=== PATIENT | female | born 1985 | race Caucasian/White ===

== ENCOUNTER 2024-09-28 10:29 | Outpatient (OUT) | payer OTHER, SELFPAY ==
[2024-09-28 10:58] LABS: Basophils Percent Auto 0.5 % (0.2-2.0); Eosinophils Absolute Auto 0.1 10^3/uL (0.0-0.7); Hemoglobin 14.9 g/dL (12.0-16.0); Immature Granulocytes Abs Auto 0.01 10^3/uL (0.00-0.03); Immature Granulocytes Pct Auto 0.1 % (0.0-0.5); Lymphocytes Absolute Auto 3.4 10^3/uL (1.2-3.8); Lymphocytes Percent Auto 43.2 % (20.5-60.0); Mean Corpuscular HGB Conc 33.1 g/dL (29.9-35.2); Mean Corpuscular Hemoglobin 28.5 pg (26.7-34.0); Mean Platelet Volume 9.7 fL (9.5-13.5); Monocytes Absolute Auto 0.5 10^3/uL (0.3-0.8); Neutrophils Absolute Auto 3.9 10^3/uL (1.4-6.5); Neutrophils Percent Auto 49.2 % (43.0-75.0); Platelet Count 236 10^3/uL (150-450); Red Blood Count 5.23 10^6/uL (4.20-5.40); Red Cell Distribution Width 12.3 % (11.0-15.0); White Blood Count 7.8 10^3/uL (4.0-11.0)
[2024-09-28 11:04] LABS: Estimated Average Glucose 114 mg/dL; Glycohemoglobin A1C 5.6 % (4.5-6.2)
[2024-09-28 11:31] LABS: Alanine Aminotransferase 41 U/L (14-59); Albumin Globulin Ratio 0.8; Albumin Level 3.4 g/dL (3.4-5.0); Alkaline Phosphatase 78 U/L (46-116); Anion Gap 11.9; Aspartate Amino Transferase 32 U/L (15-37); BUN Creatinine Ratio 20.7; Bilirubin Total 0.4 mg/dL (0.2-1.0); Carbon Dioxide 28.5 mmol/L (21.0-32.0); Chloride 103 mmol/L (98-107); Chol HDL Ratio 4.6; Cholesterol 183 mg/dL (<=200); Estimated GFR (African America >60 (>=60 mL/min/1.73m^2); Estimated GFR (Non-African Ame >60 (>=60 mL/min/1.73m^2); Free T3 2.96 pg/mL (2.18-3.98); Globulin 4.2 g/dL; Glucose 84 mg/dL (74-106); HDL Cholesterol 40 mg/dL (40-60); LDL Cholesterol Calculated 116.8 mg/dL; Potassium 4.4 mmol/L (3.5-5.1); Sodium 139 mmol/L (136-145); Thyroid Stimulating Hormone 0.474 uIU/mL (0.358-3.740); Total Protein 7.6 g/dL (6.4-8.2); Triglycerides 131 mg/dL (<=150); VLDL CHOLESTEROL 26.2 mg/dL
== END 2024-09-28 10:30 | disposition home or self-care (01) ==
LOC: LAB 10:33
PROVIDERS: PCP Family Medicine; Visit Provider Family Medicine
DX: Z00.00 Encounter for general adult medical examination without abnormal findings (principal)
CPT/HCPCS: 36415; 80053; 80061; 83036; 83540; 84436; 84443; 84481; 85025

== ENCOUNTER 2025-08-09 17:47 | Emergency (ER) | payer SELFPAY ==
--- OUTSIDE RECORDS SUMMARY | 2024-09-01 10:45 | XMS_ITS ---
Author Organization [facility] in [place] Address [address] [place] [address] Care Team Providers Care Community Nutrition Educator Name Role Phone Fly Morel Primary Care Provider [phone] REASON FOR VISIT Annual Encounters Encounter Location Date Provider Diagnosis [facility] [address] [place] [address] 09/01/2024 Fly Morel Plan Of Treatment No Information Progress Notes * Elizabeth SLOAN NDOB:1985 (39 yo F)Acc No.[id number]:09/01/2024 UNLOCKED PROGRESS NOTE Progress Note Patient: Elizabeth JONAS Provider: Kang Morel MD (TTC) :1985 A ge:38 Y S ex:Female Date:09/01/2024 [id number] Subjective: * Chief Complaints: * 1 . Annual. * Medical History: Objective: * Vitals: Assessment: Plan: * Treatment: * * Electronic signature of Fly Morel MD, [id number] on 08/09/2025 at 05:54 PM EDT Sign off status: Pending Visit Status: C ANC (Cancelled) * Provider: Kang Morel MD (TTC) Date: 11/01/2023 Generated for Printi ng/Faxing/eTransmitting on: 05:54 PM EDT
--- OUTSIDE RECORDS SUMMARY | 2024-09-29 07:00 | XMS_ITS ---
Author Organization The [facility] in [place] Address [address] [place] [place] [address] Care Team Providers Care Ict Support Engineer Name Role Phone Fly Morel Primary Care Provider [phone] Mojgan Duran [phone] REASON FOR VISIT yearly Encounters Encounter Location Date Provider Diagnosis [facility] [address] [place] [address] 09/29/2024 Mojgan Zhou Plan Of Treatment No Information Progress Notes * Elizabeth SLOAN NDOB:1985 (39 yo F)Acc No.[id number]:09/29/2024 UNLOCKED PROGRESS NOTE Progress Note Patient: Elizabeth JONAS Provider: Roque Zhou CNP (TTC) :1985 A ge:38 Y S ex:Female Date:09/29/2024 Address:[facility] [address], [facility] Pcp:Fly Morel Subjective: * Chief Complaints: * 1 . Yearly. * Medical History: Objective: * Vitals: Assessment: Plan: * Treatment: * * Electronic signature of Yasmin Kolb NP, PHYSICIAN [email or web address].[email or web address] [email or web address] on 08/09/2025 at 05:54 PM EDT Sign off status: Pending Visit Status: C ANC (Cancelled) * Provider: Roque Zhou CNP (TTC) Date: 1 11/30/2023 Generated for Printi ng/Faxing/eTransmitting on: 1 05:54 PM EDT
--- OUTSIDE RECORDS SUMMARY | 2024-10-06 04:45 | XMS_ITS ---
Author Organization [facility] in [place] Address [address] [place] [address] Care Team Providers Care Lactation Nurse Name Role Phone Fly Morel Primary Care Provider Alexander Summers [phone] Results Component Value Reference Range Notes XR Foot RT (3 views) * Reviewed date:10/25/2024 01:16:20 PM Interpretation: Performing Lab: Notes/Report: REASON FOR VISIT callus and hammertoes, referral from Maria Teresa Encounters Encounter Location Date Provider Diagnosis [facility] (P[facility]) [address] [place] [address] [place] [address] 10/06/2024 Alexander Summers Left foot pain M79.672 and Right foot pain M79.671 Assessments Encounter Date Diagnosis (ICD Code) Assessment Notes Treatment Notes Treatment Clinical Notes Section Notes 10/06/2024 Left foot pain (ICD-10 - M79.672) 10/06/2024 Right foot pain (ICD-10 - M79.671) Plan Of Treatment Pending Test Test Name Order Date XR Foot LT (3 views) * 10/06/2024 Progress Notes * Elizabeth SLOAN NDOB:1985 (39 yo F)Acc No.[id number]:10/06/2024 UNLOCKED PROGRESS NOTE New Patient Patient: Elizabeth JONAS Jose Provider: Roque Summers DPM, MS :1985 A ge:38 Y S ex:Female Date:10/06/2024 Address:[address] [place] [address] [address], [place], [id number] Pcp:Fly Morel Subjective: * Chief Complaints: * 1 . callus and hammertoes, referral from Maria Teresa. * Medical History: Objective: * Vitals: Assessment: * Assessment: 1. L eft foot pain - M79.672 2 . R ight foot pain - M79.671 ? Plan: * Treatment: 2. R ight foot pain I maging: XR Foot RT (3 views) * (Performed Date - 10/06/2024) * * Electronic signature of Timothy Summers DPM on 08/09/2025 at 05:54 PM EDT Sign off status: Pending Visit Status: C ANC (Cancelled) * Provider: Roque Summers DPM, MS Date: 12/07/2023 Generated for Donovan albarado/Laura/eTransmitting on: 1 05:54 PM EDT
[2025-08-09 17:50] VITALS: BP 147/77; PULSE 118; TEMP 37.1; O2SAT 100; BMI 25.0
--- OUTSIDE RECORDS SUMMARY | 2025-08-09 17:55 | XMS_ITS | CCD ---
Author Organization [facility] Care Team Providers Care Trimmer Meat Name Role Phone MARIA TERESA ., DR REILLY Admitting Unavailable MARIA TERESA ., DR REILLY Attending Unavailable BOBYY ., DR REILLY Consulting Unavailable BOBYY ., DR REILLY Primary Care Unavailable HOY ., DR REILLY Attending Unavailable BOBYY ., DR REILLY Primary Care Unavailable MARIA TERESA ., DR REILLY Admitting Unavailable MD Melba Brown Primary Care Provider [phone] TYESHA Ha Emergency Provider MD Melba Brown Primary Care Provider [phone] MD Melba Brown Attending Provider [phone] VASQUEZ ALFARO Attending Unavailable LAZARO Brown Emergency Provider MD Melba Brown Primary Care Provider [phone] MD Juan Ramon Butler Attending Provider Yadiel Ha Admitting Unavailable Yadiel Ha Attending Unavailable Melba Brown Primary Care Unavailable Juan Ramon Butler Admitting Unavailable Juan Ramon Butler Attending Unavailable Melba Brown Primary Care Unavailable Melba Brown Admitting Unavailable Melba Brown Attending Unavailable Melba Brown Primary Care Unavailable Edgar Brown Admitting Unavailable Edgar Brown Attending Unavailable Mebla Brown Primary Care Unavailable Allergies Allergy Classification Reported Allergen(s) Allergy Type Date of Onset Reaction(s) Facility (1 source) Shellfish Drug allergy (disorder) 6 [facility] (5 sources) traMADol Drug Allergy 2 Seizure [facility] (5 sources) Amoxicillin; Translations: [amoxicillin] Drug Allergy 2 [facility] (5 sources) Shrimp product; Translations: [shrimp] Propensity to adverse reactions 2 Hives [facility] (1 source) traMADol Drug Allergy 4 [facility] Repository Medications Current Medications Medication Drug Class(es) Dates Sig (Normalized) Sig (Original) amitriptyline hydrochloride 100 mg oral tablet (8 sources) Tricyclic Antidepressant Start: 03-28-2021 take 100 mg by mouth once daily Amitriptyline Active 100 MG PO Daily March 28, 2021 12:00am Start: 12-03-2017 End: 04-26-2019 take 100 mg by mouth once daily Amitriptyline Discontinued 100 MG PO Daily December 03, 2017 1:00am April 26, 2019 12:56pm clindamycin 150 mg oral capsule (6 sources) Lincosamide Antibacterial Start: 04-29-2024 take 300 mg by mouth every six hours Clindamycin Hcl Active 300 MG PO Q6H 80 April 29, 2024 12:00am Start: 11-26-2021 End: 04-29-2024 take 150 mg by mouth four times daily Clindamycin Hcl Discontinued 150 MG PO Four times daily November 26, 2021 1:00am April 29, 2024 6:42pm ibuprofen 800 mg oral tablet (16 sources) Nonsteroidal Anti-inflammatory Drug Start: 11-26-2021 take 800 mg by mouth three times daily Ibuprofen Active 800 MG PO Three times daily November 26, 2021 1:00am Start: 05-30-2019 End: 11-26-2021 Ibuprofen Discontinued 600 M G PO Every 6 hours May 30, 2019 12:00am November 26, 2021 10:52am do not exceed 4 doses in a 24 hour period Start: 03-06-2018 End: 04-26-2019 take 800 mg by mouth three times daily Ibuprofen Discontinued 800 MG PO Three times daily June 25, 2018 12:36pm April 26, 2019 12:56pm methadone hydrochloride 10 mg oral tablet (4 sources) Opioid Agonist Start: 03-28-2021 take 120 mg by mouth once daily Methadone Active 120 MG PO Daily March 28, 2021 12:00am naproxen 500 mg oral tablet (2 sources) Nonsteroidal Anti-inflammatory Drug Start: 04-29-2024 take 1 tablet by mouth twice daily Naproxen (Naprosyn) 500 mg tablet Active 500 MG PO Twice daily April 29, 2024 12:00am Completed/Discontinued Medications Medication Drug Class(es) Dates Sig (Normalized) Sig (Original) acetaminophen 325 mg / HYDROcodone bitartrate 5 mg oral tablet (8 sources) Opioid Agonist Start: 06-25-2018 End: 06-27-2018 take 1 tablet by mouth every six hours Hydrocodone-Acetami nophen (Marquez) 5-325 mg tablet Discontinued 1 TAB PO Q6H 6 2 June 25, 2018 June 27, 2018 12:02am Start: 06-19-2018 End: 06-21-2018 take 1 tablet by mouth every six hours Hydrocodone-Acetaminophen (Marquez) 5-325 mg tablet Discontinued 1 TAB PO Q6H 10 2 June 19, 2018 June 21, 2018 12:02am azithromycin 250 mg oral tablet (4 sources) Macrolide Antimicrobial Start: 03-28-2021 End: 11-26-2021 Azithromycin Discontinued 0 PO .COMPLEX 6 March 28, 2021 12:00am November 26, 2021 10:52am take 500 mg today (day 1), then 250 mg for 4 days (days 2-5) buprenorphine 8 mg / naloxone 2 mg sublingual film (4 sources) Partial Opioid Agonist, Opioid Antagonist Start: 03-28-2021 End: 03-28-2021 Buprenorphine-Nalox one Discontinued FILM March 28, 2021 12:00am March 28, 2021 10:02am cephalexin 500 mg oral capsule (4 sources) Cephalosporin Antibacterial Start: 05-30-2019 End: 03-28-2021 take 1 capsule by mouth three times daily Cephalexin (Keflex) 500 mg Capsule Discontinued 500 MG PO Three times daily May 30, 2019 12:00am March 28, 2021 10:00am dexamethasone 0.1 mg/ml oral solution (4 sources) Corticosteroid Start: 10-14-2023 End: 04-29-2024 take 1 mg by mouth four times daily Dexamethasone Discontinued 1 MG PO Four times daily October 14, 2023 1:00am April 29, 2024 6:42pm Swish and spit diphenhydrAMINE hydrochloride 25 mg oral capsule (4 sources) Histamine-1 Receptor Antagonist Start: 05-30-2019 End: 03-28-2021 take 2 capsules by mouth once daily at bedtime Diphenhydramine Hcl (Benadryl) 25 mg Capsule Discontinued 50 MG PO Daily at bedtime May 30, 2019 12:00am March 28, 2021 10:00am esomeprazole 20 mg delayed release oral capsule (4 sources) Proton Pump Inhibitor Start: 06-02-2019 End: 03-28-2021 take 1 capsule by mouth once daily Esomeprazole Magnesium (Nexium) 20 mg Capsule,Delayed Release(Dr/Ec) Discontinued 20 MG PO Daily June 02, 2019 12:00am March 28, 2021 10:00am ketorolac tromethamine 5 mg/ml ophthalmic solution (4 sources) Nonsteroidal Anti-inflammatory Drug, Cyclooxygenase Inhibitor Start: 04-26-2019 End: 05-30-2019 take 1 drop(s) into the eye(s) every six hours Ketorolac Discontinued 1 DROPS OPHTHALMIC Q6H 5 April 26, 2019 12:00am May 30, 2019 5:50pm predniSONE 20 mg oral tablet (4 sources) Start: 03-28-2021 End: 11-26-2021 take 60 mg by mouth once daily at mealtime Prednisone Discontinued 60 MG PO Daily March 28, 2021 12:00am November 26, 2021 10:52am administer with food or milk Problems Active Problems Problem Classification Problem Date Documented Date Episodic/Chronic Abdominal pain (4 sources) Abdominal pain; Translations: [Unspecified abdominal pain] 06-02-2019 Episodic Chronic obstructive pulmonary disease and bronchiectasis (4 sources) Bronchitis; Translations: [Bronchitis, not specified as acute or chronic] 03-28-2021 Episodic Deficiency and other anemia (1 source) Anemia, unspecified; Translations: [ANEMIA UNSPECIFIED] Onset: 03-06-2023 Episodic Diabetes mellitus without complication (1 source) Other abnormal glucose; Translations: [OTHER ABNORMAL GLUCOSE] Onset: 03-06-2023 Episodic Disorders of teeth and jaw (7 sources) Toothache; Translations: [Other specified disorders of teeth and supporting structures] Onset: 04-29-2024 11-26-2021 Episodic Hepatitis (4 sources) Unspecified viral hepatitis C without hepatic coma; Translations: [UNS VIRAL HEPATITIS C W/O HEP COMA] Onset: 03-01-2023 Episodic Nausea and vomiting (4 sources) Nausea and vomiting; Translations: [Nausea with vomiting, unspecified] 01-01-2018 Episodic Nutritional deficiencies (1 source) Vitamin D deficiency, unspecified; Translations: [VITAMIN D DEFICIENCY UNSPECIFIED] Onset: 03-06-2023 Chronic Other connective tissue disease (4 sources) Heel pain; Translations: [Pain in left foot] 04-26-2019 Episodic Other eye disorders (4 sources) Chalazion of right upper eyelid; Translations: [Chalazion right upper eyelid] 04-26-2019 Episodic Other nutritional; endocrine; and metabolic disorders (1 source) Abnormal weight loss; Translations: [ABNORMAL WEIGHT LOSS] Onset: 03-06-2023 Episodic Other nutritional; endocrine; and metabolic disorders (4 sources) Weight loss; Translations: [Abnormal weight loss] 01-01-2018 Episodic Other screening for suspected conditions (not mental disorders or infectious disease) (1 source) Abnormal electrocardiogram [ECG] [EKG]; Translations: [Abnormal electrocardiogram [ECG] [EKG]] Onset: 05-25-2024 Episodic Substance-related disorders (1 source) Opioid abuse, uncomplicated; Translations: [OPIOID ABUSE UNCOMPLICATED] Onset: 03-06-2023 Chronic Thyroid disorders (1 source) Hypothyroidism, unspecified; Translations: [Hypothyroidism, unspecified] Onset: 02-06-2024 Chronic Urinary tract infections (4 sources) Acute urinary tract infection; Translations: [Urinary tract infection, site not specified] 05-30-2019 Episodic Past or Other Problems Problem Classification Problem Date Documented Da te Episodic/Chronic Diseases of mouth; excluding dental (5 sources) Aphthous ulceration of skin and/or mucous membrane; Translations: [Recurrent oral aphthae] Onset: 10-14-2023 10-14-2023 Episodic Results Test Name Value Interpretation Reference Range Facility ECG 12 lead ECGon 05-25-2024 ECG 12 lead ECG [facility] [place] [address] Electrocardiograph Report Signed Patient: Elizabeth Sloan MR#: [id number] : 1985 Acct:[id number] Age/Sex: 38 / F ADM Date: 05/25/24 Loc: Room: Type: [facility] Attending Dr: Juan Ramon Butler MD Ordering Provider: Juan Ramon Butler MD Date of Service: 05/25/24/ ECG/ECG 12 lead ECG: see order Copies to: Test Reason : Blood Pressure : */* mmHG Vent. Rate : 81 BPM Atrial Rate : 81 BPM P-R Int : 144 ms QRS Dur : 78 ms QT Int : 388 ms P-R-T Axes : 54 64 50 degrees QTcB Int : 450 ms Normal sinus rhythm Normal ECG When compared with ECG of 26-Nov-2021 09:32, No significant change was found Confirmed by EH JOSE [facility], MARINA ([id number]) on 05/25/2024 2:48:11 PM Referred By: Electronically Signed By: MARINA GONZALEZ MD [facility] Transcribed By: MUS Signed By Marina Gonzalez MD, [facility] 05/25/24 1448 Normal [facility] A1C with Estimated Average G daviddavon 02-06-2024 Glucose [Mass/Vol] 117 mg/dL Normal [facility] Comment on above: Order Comment: FASTI NG Result Comment: PERF ORMED BY: [place] [address] PATHOLOGIST [employer]ZER PRESS OPERATOR TINY MERCER M.D. Performed By: #### T 3F, CMP, TSH3, FSH, LIPID, A1C WTH eA, CBC, [id number], FE #### [facility] [address] [place] [address] #### INSULIN #### [facility] , Alanine aminotransferase [En zymatic activity/volume] in Serum or PlasmaOrdered By: Melba Brown on 02-06-2024 ALT [Catalytic activity/Vol] 39 U/L Normal [facility] Comment on above: Order Comment: FASTI NG Performed By: #### T 3F, CMP, TSH3, FSH, LIPID, A1C WTH eA, CBC, [id number], FE #### [facility] [address] [place] [address] [place] #### INSULIN #### [facility] , Albumin [Mass/volume] in Ser um or Plasma by Bromocresol green (BCG) dye binding methoOrdered By: Melba Brown on 02-06-2024 Albumin BCG dye [Mass/Vol] 4.3 g/dL 3.5-5.7 [facility] Alkaline phosphatase [Enzyma tic activity/volume] in Serum or PlasmaOrdered By: Melba Brown on 02-06-2024 ALP [Catalytic activity/Vol] 80 U/L Normal 34-104 [facility] Comment on above: Order Comment: FASTI NG Performed By: #### T 3F, CMP, TSH3, FSH, LIPID, A1C WTH eA, CBC, [id number], FE #### [facility] [address] [place] [address] [place] #### INSULIN #### [facility] , Aspartate aminotransferase [ Enzymatic activity/volume] in Serum or PlasmaOrdered By: Melba Brown on 02-06-2024 AST [Catalytic activity/Vol] 39 U/L Normal 13-39 [facility] Comment on above: Order Comment: FASTI NG Performed By: #### T 3F, CMP, TSH3, FSH, LIPID, A1C WTH eA, CBC, [id number], FE #### [facility] [address] [place] [address] [place] #### INSULIN #### [facility] , Automated basophil %Ordered By: Melba Brown on 02-06-2024 Basophils/100 WBC (Bld) 0.5 % Normal . [facility] Comment on above: Order Comment: FASTI NG Performed By: #### T 3F, CMP, TSH3, FSH, LIPID, A1C WTH eA, CBC, [id number], FE #### [facility] [address] [place] [address] [place] #### INSULIN #### [facility] , Automated basophil countOrde red By: Melba Brown on 02-06-2024 Basophils (Bld) [#/Vol] 0.0 10*3/uL Normal 0.0-0.2 [facility] Comment on above: Order Comment: FASTI NG Result Comment: PERF ORMED BY: [place] [address] PATHOLOGIST B[employer]DOZER PRESS OPERATOR TINY MERCER M.D. Performed By: #### T 3F, CMP, TSH3, FSH, LIPID, A1C WTH eA, CBC, [id number], FE #### [facility] [address] [place] [address] [place] #### INSULIN #### [facility] , Automated blood monocyte cou ntOrdered By: Melba Brown on 02-06-2024 Monocytes (Bld) [#/Vol] 0.6 10*3/uL Normal 0.0-0.8 [facility] Comment on above: Order Comment: FASTI NG Performed By: #### T 3F, CMP, TSH3, FSH, LIPID, A1C WTH eA, CBC, [id number], FE #### [facility] [address] [place] [address] [place] #### INSULIN #### [facility] , Automated eosinophil %Ordere d By: Melba Brown on 02-06-2024 Eosinophils/100 WBC (Bld) 0.9 % Normal . [facility] Comment on above: Order Comment: FASTI NG Performed By: #### T 3F, CMP, TSH3, FSH, LIPID, A1C WTH eA, CBC, [id number], FE #### [facility] [address] [place] [address] [place] #### INSULIN #### [facility] , Automated eosinophil countOr dered By: Melba Brown on 02-06-2024 Eosinophils (Bld) [#/Vol] 0.1 10*3/uL Normal 0.0-0.45 [facility] Comment on above: Order Comment: FASTI NG Performed By: #### T 3F, CMP, TSH3, FSH, LIPID, A1C WTH eA, CBC, [id number], FE #### [facility] [address] [place] [address] [place] #### INSULIN #### [facility] , Automated monocyte %Ordered By: Melba Brown on 02-06-2024 Monocytes/100 WBC (Bld) 7.7 % Normal . [facility] Comment on above: Order Comment: FASTI NG Performed By: #### T 3F, CMP, TSH3, FSH, LIPID, A1C WTH eA, CBC, [id number], FE #### [facility] [address] [place] [address] [place] #### INSULIN #### [facility] , Automated neutrophil %Ordere d By: Melba Maria Teresa on 02-06-2024 Neutrophils/100 WBC (Bld) 51.1 % Normal . [facility] Comment on above: Order Comment: FASTI NG Performed By: #### T 3F, CMP, TSH3, FSH, LIPID, A1C WTH eA, CBC, [id number], FE #### [facility] [address] [place] [address] [place] #### INSULIN #### [facility] , Bilirubin.total [Mass/volume ] in Serum or PlasmaOrdered By: Melba Brown on 02-06-2024 Bilirubin [Mass/Vol] 0.4 mg/dL Normal 0.3-1.0 [facility] Comment on above: Order Comment: FASTI NG Performed By: #### T 3F, CMP, TSH3, FSH, LIPID, A1C WTH eA, CBC, [id number], FE #### [facility] [address] [place] [address] [place] #### INSULIN #### [facility] , Calcium [Mass/volume] in Ser um or PlasmaOrdered By: Melba Brown on 02-06-2024 Calcium [Mass/Vol] 9.6 mg/dL Normal 8.6-10.3 [facility] Comment on above: Order Comment: FASTI NG Performed By: #### T 3F, CMP, TSH3, FSH, LIPID, A1C WTH eA, CBC, [id number], FE #### [facility] [address] [place] [address] [place] #### INSULIN #### [facility] , Carbon dioxide, total [Moles /volume] in Serum or PlasmaOrdered By: Melba Brown on 02-06-2024 CO2 [Moles/Vol] 28.8 mmol/L Normal 21.0-31.0 [facility] Comment on above: Order Comment: FASTI NG Performed By: #### T 3F, CMP, TSH3, FSH, LIPID, A1C WTH eA, CBC, [id number], FE #### [facility] [address] [place] [address] [place] #### INSULIN #### [facility] , Chloride [Moles/volume] in S d[place] or PlasmaOrdered By: Melba Brown on 02-06-2024 Chloride [Moles/Vol] 101 mmol/L Normal 98-107 [facility] Comment on above: Order Comment: FASTI NG Performed By: #### T 3F, CMP, TSH3, FSH, LIPID, A1C WTH eA, CBC, [id number], FE #### [facility] [address] [place] [address] #### INSULIN #### [facility] , Cholesterol [Mass/volume] in Serum or PlasmaOrdered By: Melba Brown on 02-06-2024 Cholesterol [Mass/Vol] 187 mg/dL Normal 140-200 [facility] Comment on above: Chol less than 200 m g/dl low riskChol 201-239 mg/dl borderline riskChol 240 mg/dl and greater high risk Order Comment: FASTI NG Result Comment: Chol less than 200 mg/dl low risk Chol 201-239 mg/dl borderline risk Chol 240 mg/dl and greater high risk Performed By: #### T 3F, CMP, TSH3, FSH, LIPID, A1C WTH eA, CBC, [id number], FE #### [facility] [address] [place] [address] [place] #### INSULIN #### [facility] , Cholesterol in LDL Calc [Mas s/Vol]Ordered By: Melba Brown on 02-06-2024 Cholesterol in LDL [Mass/Vol] 129 mg/dL High 0-100 [facility] Comment on above: LDL ATP III CLASSIFI CATIONLDL less than 100 mg/dL OptimalLDL 100-129 mg/dL Near or above optimalLDL 130-159 mg/dL Borderline highLDL 160-189 mg/dL HighLDL greater than 189 mg/dL Very high Cholesterol in VLDL Calc [Ma ss/Vol]Ordered By: Melba Brown on 02-06-2024 Cholesterol in VLDL [Mass/Vol] 28 mg/dL [facility] Complete Blood Count Auto Di ffon 02-06-2024 Mean Corpuscular HGB Conc 34.2 g/dL Normal 32.0-35.0 [facility] Comment on above: Order Comment: FASTI NG Performed By: #### T 3F, CMP, TSH3, FSH, LIPID, A1C WTH eA, CBC, [id number], FE #### [address] #### INSULIN #### [facility] , NRBC% 0.3 /100{WBC} Normal 0-0.5 [facility] Comment on above: Order Comment: FASTI NG Performed By: #### T 3F, CMP, TSH3, FSH, LIPID, A1C WTH eA, CBC, [id number], FE #### [place] [address] [place] #### INSULIN #### [facility] , Comprehensive Metabolic Pane ara 02-06-2024 Albumin [Mass/Vol] 4.3 g/dL Normal 3.5-5.7 [facility] Comment on above: Order Comment: FASTI NG Performed By: #### T 3F, CMP, TSH3, FSH, LIPID, A1C WTH eA, CBC, [id number], FE #### [place] [address] [place] #### INSULIN #### [facility] , GFR/1.73 sq M.predicted MDRD (S/P/Bld) [Vol rate/Area] mL/min/{1.73_m2} Normal [facility] Comment on above: Order Comment: FASTI NG Performed By: #### T 3F, CMP, TSH3, FSH, LIPID, A1C WTH eA, CBC, [id number], FE #### [place] [address] [place] #### INSULIN #### [facility] , Creatinine [Mass/volume] in Serum or PlasmaOrdered By: Melba Brown on 02-06-2024 Creatinine [Mass/Vol] 0.71 mg/dL Normal 0.60-1.20 [facility] Comment on above: Order Comment: FASTI NG Performed By: #### T 3F, CMP, TSH3, FSH, LIPID, A1C WTH eA, CBC, [id number], FE #### [facility] [address] [place] [address] #### INSULIN #### [facility] , Erythrocyte distribution wid th [Ratio] by Automated countOrdered By: Melba Brown on 02-06-2024 Erythrocyte distribution width (RBC) [Ratio] 13.8 % Normal 11.9-15.3 [facility] Comment on above: Order Comment: FASTI NG Performed By: #### T 3F, CMP, TSH3, FSH, LIPID, A1C WTH eA, CBC, [id number], FE #### [facility] [address] [place] [address] #### INSULIN #### [facility] , Erythrocytes [#/volume] in B lood by Automated countOrdered By: Melba Brown on 02-06-2024 RBC (Bld) [#/Vol] 5.45 10*6/uL High 3.60-5.00 [facility] Comment on above: Order Comment: FASTI NG Performed By: #### T 3F, CMP, TSH3, FSH, LIPID, A1C WTH eA, CBC, [id number], FE #### [facility] [address] [place] [address] [place] #### INSULIN #### [facility] , Follicle Stimulating Hormone on 02-06-2024 Follicle Stimulating Hormone 2.7 m[iU]/mL Normal [facility] Comment on above: Order Comment: FASTI NG Result Comment: FEMA LE NORMALS (PREMENOPAUSE) MID-FOLLICULAR PHASE: 3.9-8.8 mIU/mL MID-CYCLE PEAK: 4.5-22.5 mIU/mL MID-LUTEAL PHASE: 1.8-5.1 mIU/mL FEMALE NORMALS (POSTMENOPAUSE): 16.7-113.6 mIU/mL MALE NORMALS: 1.3-19.3 mIU/mL Performed By: #### T 3F, CMP, TSH3, FSH, LIPID, A1C WTH eA, CBC, [id number], FE #### [facility] [address] [place] [address] [place] #### INSULIN #### [facility] , Follitropin [Units/volume] i n Serum or PlasmaOrdered By: Melba Brown on 02-06-2024 Follitropin Qn 2.7 m[IU]/mL [facility] Comment on above: FEMALE NORMALS (CIARAN ENOPAUSE) MID-FOLLICULAR PHASE: 3.9-8.8 mIU/mL MID-CYCLE PEAK: 4.5-22.5 mIU/mL MID-LUTEAL PHASE: 1.8-5.1 mIU/mLFEMALE NORMALS (POSTMENOPAUSE): 16.7-113.6 mIU/mLMALE NORMALS: 1.3-19.3 mIU/mL Glucose [Mass/volume] in Ser um or PlasmaOrdered By: Melba Brown on 02-06-2024 Glucose [Mass/Vol] 84 mg/dL Normal 70-100 [facility] Comment on above: ADA recommended refe rence rangeRandom Glucose Reference Range is dependent on time and content of last meal. Glucose of more than 200 mg/dL in a nonstressed, ambulatory subject supports the diagnosis of Diabetes Mellitus. Order Comment: FASTI NG Result Comment: [place] om Glucose Reference Range is dependent on time and content of last meal. Glucose of more than 200 mg/dL in a nonstressed, ambulatory subject supports the diagnosis of Diabetes Mellitus. ADA recommended reference range Performed By: #### T 3F, CMP, TSH3, FSH, LIPID, A1C WTH eA, CBC, [id number], FE #### [facility] [address] [place] [address] [place] #### INSULIN #### [facility] , Glucose mean value [Mass/vol ume] in Blood Estimated from glycated hemoglobinOrdered By: Melba Brown on 02-06-2024 Average glucose Estimated from glycated hemoglobin (Bld) [Mass/Vol] 117 mg/dL [facility] Hematocrit [Volume Fraction] of Blood by Automated countOrdered By: Melba Brown on 02-06-2024 Hematocrit (Bld) [Volume fraction] 46.9 % High 34.0-46.4 [facility] Comment on above: Order Comment: FASTI NG Performed By: #### T 3F, CMP, TSH3, FSH, LIPID, A1C WTH eA, CBC, [id number], FE #### [address] #### INSULIN #### [facility] , Hemoglobin A1c percentageOrd ered By: Melba Brown on 02-06-2024 HbA1c (Bld) [Mass fraction] 5.7 % High 4.3-5.6 [facility] Comment on above: Increased risk for d iabetes: 5.7 - 6.4diabetes: >6.4glycemic control for adults with diabetes: <7.0 Order Comment: FASTI NG Result Comment: Incr eased risk for diabetes: 5.7 - 6.4 diabetes: >6.4 glycemic control for adults with diabetes: <7.0 Performed By: #### T 3F, CMP, TSH3, FSH, LIPID, A1C WTH eA, CBC, [id number], FE #### [facility] [address] [place] [address] #### INSULIN #### [facility] , Hemoglobin [Mass/volume] in BloodOrdered By: Melba Brown on 02-06-2024 Hemoglobin (Bld) [Mass/Vol] 16.1 g/dL High 11.8-15.4 [facility] Comment on above: Order Comment: FASTI NG Performed By: #### T 3F, CMP, TSH3, FSH, LIPID, A1C WTH eA, CBC, [id number], FE #### [facility] [address] [place] [address] #### INSULIN #### [facility] , Insulinon 02-06-2024 Insulin 37.5 u[iU]/mL High 2.6-24.9 [facility] Comment on above: Order Comment: FASTI NG Result Comment: Perf ormed at: [facility] [id number] Direct Support Professional: Martin Clark PhD, Phone: [phone] PERFORMED BY: [place] [address] PATHOLOGIST B[employer]ZER PRESS OPERATOR TINY MERCER M.D. Performed By: #### T 3F, CMP, TSH3, FSH, LIPID, A1C WTH eA, CBC, [id number], FE #### [address] #### INSULIN #### [facility] , Iron [Mass/volume] in Serum or PlasmaOrdered By: Melba Brown on 02-06-2024 Iron [Mass/Vol] 52 ug/dL Normal 50-212 [facility] Comment on above: Order Comment: FASTI NG Performed By: #### T 3F, CMP, TSH3, FSH, LIPID, A1C WTH eA, CBC, [id number], FE #### [address] #### INSULIN #### [facility] , Lab Farrah Thyroxine (T4)on T4 [Mass/Vol] 14.4 ug/dL High 4.5-12.0 [facility] Comment on above: Result Comment: Perf ormed at: [facility] [id number] Direct Support Professional: Martin Clark PhD, Phone: [phone] PERFORMED BY: [place] [address] PATHOLOGIST B[employer]DOZER PRESS OPERATOR TINY MERCER M.D. Performed By: #### T 3F, CMP, TSH3, FSH, LIPID, A1C WTH eA, CBC, [id number], FE #### [facility] [address] [place] [address] [place] #### INSULIN #### [facility] , Leukocytes [#/volume] correc nate for nucleated erythrocytes in Blood by Automated counOrdered By: Melba Brown on 02-06-2024 WBC corrected for nucl RBC Auto (Bld) [#/Vol] 7.1 10*3/uL 3.8-11.6 [facility] Leukocytes [#/volume] in Blo od by Automated countOrdered By: Melba Brown on 02-06-2024 WBC (Bld) [#/Vol] 7.1 10*3/uL Normal 3.8-11.6 [facility] Comment on above: Order Comment: FASTI NG Performed By: #### T 3F, CMP, TSH3, FSH, LIPID, A1C WTH eA, CBC, [id number], FE #### [facility] [address] [place] [address] [place] #### INSULIN #### [facility] , Lipid Panelon 02-06-2024 LDL Cholesterol,Calculated 129 mg/dL High 0-100 [facility] Comment on above: Order Comment: FASTI NG Result Comment: LDL ATP III CLASSIFICATION LDL less than 100 mg/dL Optimal LDL 100-129 mg/dL Near or above optimal LDL 130-159 mg/dL Borderline high LDL 160-189 mg/dL High LDL greater than 189 mg/dL Very high Performed By: #### T 3F, CMP, TSH3, FSH, LIPID, A1C WTH eA, CBC, [id number], FE #### [facility] [address] [place] [address] [place] #### INSULIN #### [facility] , Triglyceride w/Reflex 142 mg/dL Normal 0-149 [facility] Comment on above: Order Comment: FASTI NG Result Comment: TRIG ATP III CLASSIFICATION TRIG less than 150 mg/dL Normal TRIG 150-199 mg/dL Borderline high TRIG 200-500 mg/dL High TRIG greater than 500 mg/dL Very high Standard traceable to the Center for Disease Conrtrol and Prevention (CDC) test method. Performed By: #### T 3F, CMP, TSH3, FSH, LIPID, A1C WTH eA, CBC, [id number], FE #### [facility] [address] [place] [address] [place] #### INSULIN #### [facility] , VLDL CHOLESTEROL 28 mg/dL Normal [facility] Comment on above: Order Comment: FASTI NG Performed By: #### T 3F, CMP, TSH3, FSH, LIPID, A1C WTH eA, CBC, [id number], FE #### [facility] [address] [place] [address] [place] #### INSULIN #### [facility] , Lymphocytes [#/volume] in Bl ood by Automated countOrdered By: Melba Brown on 02-06-2024 Lymphocytes (Bld) [#/Vol] 2.8 10*3/uL Normal 1.00-4.8 [facility] Comment on above: Order Comment: FASTI NG Performed By: #### T 3F, CMP, TSH3, FSH, LIPID, A1C WTH eA, CBC, [id number], FE #### [address] #### INSULIN #### [facility] , Lymphocytes/100 leukocytes i n Blood by Automated countOrdered By: Melba Brown on 02-06-2024 Lymphocytes/100 WBC (Bld) 39.8 % Normal . [facility] Comment on above: Order Comment: FASTI NG Performed By: #### T 3F, CMP, TSH3, FSH, LIPID, A1C WTH eA, CBC, [id number], FE #### [facility] [address] [place] [address] [place] #### INSULIN #### [facility] , MCH [Entitic mass] by Automa nate countOrdered By: Melba Brown on 02-06-2024 MCH (RBC) [Entitic mass] 29.5 pg Normal 24.7-34.3 [facility] Comment on above: Order Comment: FASTI NG Performed By: #### T 3F, CMP, TSH3, FSH, LIPID, A1C WTH eA, CBC, [id number], FE #### [facility] [address] [place] [address] [place] #### INSULIN #### [facility] , MCHC Auto (RBC) [Mass/Vol]Or dered By: Melba Brown on 02-06-2024 MCHC (RBC) [Mass/Vol] 34.2 g/dL 32.0-35.0 [facility] MCV [Entitic volume] by Auto mated countOrdered By: Melba Brown on 02-06-2024 MCV (RBC) [Entitic vol] 86.1 fL Normal 80-100 [facility] Comment on above: Order Comment: FASTI NG Performed By: #### T 3F, CMP, TSH3, FSH, LIPID, A1C WTH eA, CBC, [id number], FE #### [facility] [address] [place] [address] [place] #### INSULIN #### [facility] , Neutrophils [#/volume] in Bl ood by Automated countOrdered By: Melba Brown on 02-06-2024 Neutrophils (Bld) [#/Vol] 3.6 10*3/uL Normal 1.8-7.7 [facility] Comment on above: Order Comment: FASTI NG Performed By: #### T 3F, CMP, TSH3, FSH, LIPID, A1C WTH eA, CBC, [id number], FE #### [facility] [address] [place] [address] [place] #### INSULIN #### [facility] , No Panel InformationOrdered By: Melba Brown on 02-06-2024 Estimated GFR (CKD-EPI) > 60.0 mL/Min [facility] Free Thyroxine (T4) Direct 14.4 ug/dL High 4.5-12.0 [facility] Comment on above: Performed at: - L [address] [id number] Director: Martin Clark PhD, Phone: [phone] Pharmacy Creatinine Clearance (Chem N/A [facility] Nucleated erythrocytes [Pres ence] in Blood by Automated countOrdered By: Melba Brown on 02-06-2024 Nucleated RBC Auto Ql (Bld) 0.3 /100{WBC} 0-0.5 [facility] Platelet mean volume [Entiti c volume] in Blood by Automated countOrdered By: Melba Brown on 02-06-2024 Platelet mean volume (Bld) [Entitic vol] 8.4 fL Normal 6.3-10.7 [facility] Comment on above: Order Comment: FASTI NG Performed By: #### T 3F, CMP, TSH3, FSH, LIPID, A1C WTH eA, CBC, [id number], FE #### [facility] [address] [place] [address] #### INSULIN #### [facility] , Platelets [#/volume] in Bloo d by Automated countOrdered By: Melba Brown on 02-06-2024 Platelets (Bld) [#/Vol] 245 10*3/uL Normal 150-450 [facility] Comment on above: Order Comment: FASTI NG Performed By: #### T 3F, CMP, TSH3, FSH, LIPID, A1C WTH eA, CBC, [id number], FE #### [facility] [address] [place] [address] #### INSULIN #### [facility] , Potassium [Moles/volume] in Serum or PlasmaOrdered By: Melba Brown on 02-06-2024 Potassium [Moles/Vol] 4.5 mmol/L Normal 3.5-5.1 [facility] Comment on above: Order Comment: FASTI NG Performed By: #### T 3F, CMP, TSH3, FSH, LIPID, A1C WTH eA, CBC, [id number], FE #### [facility] [address] [place] [address] [place] #### INSULIN #### [facility] , Protein [Mass/volume] in Ser um or PlasmaOrdered By: Melba Brown on 02-06-2024 Protein [Mass/Vol] 8.0 g/dL Normal 6.4-8.9 [facility] Comment on above: Order Comment: FASTI NG Performed By: #### T 3F, CMP, TSH3, FSH, LIPID, A1C WTH eA, CBC, [id number], FE #### [address] #### INSULIN #### [facility] , Serum globulin measurement b y calculation (mass/volume)Ordered By: Melba Brown on 02-06-2024 Globulin (S) [Mass/Vol] 3.7 g/dL Normal [facility] Comment on above: Order Comment: FASTI NG Performed By: #### T 3F, CMP, TSH3, FSH, LIPID, A1C WTH eA, CBC, [id number], FE #### [address] #### INSULIN #### [facility] , Serum or plasma albumin/glob ulin mass ratioOrdered By: Melba Brown on 02-06-2024 Albumin/Globulin [Mass ratio] 1.2 {ratio} Normal [facility] Comment on above: Order Comment: FASTI NG Performed By: #### T 3F, CMP, TSH3, FSH, LIPID, A1C WTH eA, CBC, [id number], FE #### [address] #### INSULIN #### [facility] , Serum or plasma anion gap de terminationOrdered By: Melba Brown on 02-06-2024 Anion gap [Moles/Vol] 10.7 mmol/L Normal 6.0-15.0 [facility] Comment on above: Order Comment: FASTI NG Performed By: #### T 3F, CMP, TSH3, FSH, LIPID, A1C WTH eA, CBC, [id number], FE #### [address] #### INSULIN #### [facility] , Serum or plasma high density lipoprotein (HDL) cholesterol measurementOrdered By: eMlba Brown on 02-06-2024 Cholesterol in HDL [Mass/Vol] 30 mg/dL Normal 23-92 [facility] Comment on above: HDL CHOL ATP-III CLA SSIFICATION Cardiovascular RiskHDL > or equal to 60 mg/dL LOWHDL < 40 mg/dL HIGH Order Comment: FASTI NG Result Comment: HDL CHOL ATP-III CLASSIFICATION Cardiovascular Risk HDL > or equal to 60 mg/dL LOW HDL < 40 mg/dL HIGH Performed By: #### T 3F, CMP, TSH3, FSH, LIPID, A1C WTH eA, CBC, [id number], FE #### [facility] [address] #### INSULIN #### [facility] , Serum or plasma insulin serene urement (units/volume)Ordered By: Melba Brown on 02-06-2024 Insulin Qn 37.5 u[iU]/mL High 2.6-24.9 [facility] Comment on above: Performed at: [facility] [address] Director: Martin Clakr PhD, Phone: [phone] Serum or plasma total choles terol/high density lipoprotein (HDL) cholesterol mass ratOrdered By: Melba Brown on 02-06-2024 Cholesterol.total/Choles terol in HDL [Mass ratio] 6.2 {ratio} Normal <5.0 [facility] Comment on above: Order Comment: FASTI NG Performed By: #### T 3F, CMP, TSH3, FSH, LIPID, A1C WTH eA, CBC, [id number], FE #### [facility] [address] [place] [address] [place] #### INSULIN #### [facility] , Sodium [Moles/volume] in Ser um or PlasmaOrdered By: Melba Brown on 02-06-2024 Sodium [Moles/Vol] 136 mmol/L Normal 136-145 [facility] Comment on above: Order Comment: FASTI NG Performed By: #### T 3F, CMP, TSH3, FSH, LIPID, A1C WTH eA, CBC, [id number], FE #### [facility] [address] [place] [address] #### INSULIN #### [facility] , Thyrotropin [Units/volume] i n Serum or PlasmaOrdered By: Melba Brown on 02-06-2024 TSH Qn 0.63 m[IU]/L Normal 0.45-5.33 [facility] Comment on above: Order Comment: FASTI NG Performed By: #### T 3F, CMP, TSH3, FSH, LIPID, A1C WTH eA, CBC, [id number], FE #### [facility] [address] [place] [address] #### INSULIN #### [facility] , Triglyceride [Mass/volume] i n Serum or PlasmaOrdered By: Melba Brown on 02-06-2024 Triglyceride [Mass/Vol] 142 mg/dL 0-149 [facility] Comment on above: TRIG ATP III CLASSIF ICATIONTRIG less than 150 mg/dL NormalTRIG 150-199 mg/dL Borderline highTRIG 200-500 mg/dL High TRIG greater than 500 mg/dL Very highStandard traceable to the Center for Disease Conrtrol and Prevention (CDC) test method. Triiodothyronine (T3) Freeon 02-06-2024 Triiodothyronine (T3) Free 4.55 pg/mL High 2.50-3.90 [facility] Comment on above: Order Comment: FASTI NG Result Comment: PERF ORMED BY: [place] [address] PATHOLOGIST [employer]PERATOR TINY MERCER M.D. Performed By: #### T 3F, CMP, TSH3, FSH, LIPID, A1C WTH eA, CBC, [id number], FE #### [facility] [address] [place] [address] [place] #### INSULIN #### [facility] , Triiodothyronine (T3) Free [ Mass/volume] in Serum or PlasmaOrdered By: Melba Brown on 02-06-2024 Free T3 [Mass/Vol] 4.55 pg/mL High 2.50-3.90 [facility] Urea nitrogen [Mass/volume] in Serum or PlasmaOrdered By: Melba Brown on 02-06-2024 Urea nitrogen [Mass/Vol] 9 mg/dL Normal 7-25 [facility] Comment on above: Order Comment: FASTI NG Performed By: #### T 3F, CMP, TSH3, FSH, LIPID, A1C WTH eA, CBC, [id number], FE #### [facility] [address] [place] [address] #### INSULIN #### [facility] , Vitamin D 25 Hydroxy Totalon 02-06-2024 Vitamin D 25 Hydroxy Total 16.7 ng/mL Low 30-100 [facility] Comment on above: Order Comment: FASTI NG Result Comment: ОЛЬГА MIN D STATUS 25(OH)VITAMIN D RANGE (ng/mL) Deficient <20 Insufficient 20 to <30 Sufficient 30 to 100 Reference: Vinicius Bautista, Jeet MELTON, et al. Evaluation,treatment, and prevention of vitamin D deficiency; an Endocrine Society clinical practice guideline. JCEM. 2010; 96(7):1911-30. PERFORMED BY: [place] [address] PATHOLOGIST [employer] OPERATOR TINY MERCER M.D. Performed By: #### T 3F, CMP, TSH3, FSH, LIPID, A1C WTH eA, CBC, [id number], FE #### [address] #### INSULIN #### [facility] , Vitamin D+Metabolites [Mass/ volume] in Serum or PlasmaOrdered By: Melba Brown on 02-06-2024 Vitamin D+Metabolites [Mass/Vol] 16.7 ng/mL Low 30-100 [facility] Comment on above: VITAMIN D STATUS 25( OH)VITAMIN D RANGE (ng/mL) Deficient <20 Insufficient 20 to <30Sufficient 30 to 100Reference: Vinicius Bautista, Jeet MELTON, et al. Evaluation,treatment, and prevention of vitamin D deficiency; an Endocrine Society clinical practice guideline. JCEM. 2010; 96(7):1911-30. Quick Strepon 10-14-2023 Quick Strep Streptococcus pyogenes Ag [Presence] in Throat by Rapid immunoassay Negative for Group A Strep Antigen Note 1 NOTE 2 Results are those of a screening test. NOTE 3 If clinically indicated please order a culture. NOTE 4 NOTE 5 Reference range = Negative PERFORMED BY: [place] [address] PATHOLOGIST [employer] OPERATOR TINY MERCER M.D. Normal [facility] Comment on above: Performed By: #### T 3F, CMP, TSH3, FSH, LIPID, A1C WTH eA, CBC, [id number], FE #### [facility] [address] [place] [address] #### INSULIN #### [facility] , Streptococcus pyogenes antig en detectionOrdered By: Yadiel Ha on 10-14-2023 S. pyogenes Ag Ql (Unsp spec) [facility] HEP C RNA BY PCR QUANT (NON- GRAPHICAL) Won 03-05-2023 HCV Genotype Comment Normal [facility] Comment on above: Result Comment: To b e performed on this specimen. Performed By: #### H CVPCRN #### [facility] [address] [address] [address] Deana العراقي HCV log10 6.079 log10 IU/mL Normal [facility] Comment on above: Performed By: #### H CVPCRN #### [facility] [address] [address] [address] Deana العراقي Hepatitis C Genotype 1a Normal [facility] Comment on above: Performed By: #### H CVPCRN #### [facility] [address] [place] [address] Dr. Deana العراقي Hepatitis C Quantitation [id number] IU/mL Normal [facility] Comment on above: Performed By: #### H CVPCRN #### [facility] [address] [place] [address] Dr. Deana العراقي Please note: Comment Normal [facility] Comment on above: Result Comment: This test was developed and its performance characteristics determined by [employer]. It has not been cleared or approved by the U.S. Food and Drug Administration. . The FDA has determined that such clearance or approval is not necessary. This test is used for clinical purposes. It should not be regarded as investigational or for research. Performed By: #### H CVPCRN #### [facility] [address] [place] [address] Dr. Deana العراقي Test Information: Comment Normal [facility] Comment on above: Result Comment: The quantitative range of this assay is 15 IU/mL to 100 million IU/mL. Performed By: #### H CVPCRN #### [facility] [address] [place] [address] Dr. Deana العراقي INSULINon 03-03-2023 Insulin 41.0 uIU/mL Critically high 2.6-24.9 [facility] Comment on above: Performed By: #### I NSULIN #### [facility] [address] [place] [address] Dr. Deana العراقي H PYLORI ANTIBODY IGGon H. PYLORI IGG ABS 0.32 Index Value Normal 0.00-0.79 [facility] Comment on above: Result Comment: Nega tive <0.80 Equivocal 0.80 - 0.89 Positive >0.89 Performed By: #### H PYLLC #### [facility] [address] [place] [address] Dr. Deana العراقي AMMONIAon 03-01-2023 Ammonia (P) [Moles/Vol] 36 umol/L Critically high 11-32 [facility] Comment on above: Performed By: #### A MM #### [facility] [address] [place] [address] Dr. Deana العراقي AMYLASEon 03-01-2023 Amylase [Catalytic activity/Vol] 38 U/L Normal 25-115 [facility] Comment on above: Performed By: #### I NIKKO HAMILTON #### [facility] [address] [place] [address] Dr. Deana العراقي CBC AUTO DIFFon 03-01-2023 BASO # 0.0 103/ul Normal 0.0-0.1 [facility] Comment on above: Performed By: #### C BC #### [facility] [address] [place] [address] Dr. Deana العراقي Basophils/100 WBC (Bld) 0.6 % Normal 0.2-2.0 [facility] Comment on above: Performed By: #### C BC #### [facility] [address] [place] [address] Dr. Deana العراقي EO # 0.1 103/ul Normal 0.0-0.7 [facility] Comment on above: Performed By: #### C BC #### [facility] [address] [place] [address] Dr. Deana العراقي Eosinophils/100 WBC (Bld) 1.1 % Normal 0.9-7.0 [facility] Comment on above: Performed By: #### C BC #### [facility] [address] [place] [address] Dr. Deana العراقي Erythrocyte distribution width (RBC) [Ratio] 12.9 % Normal 11.0-15.0 [facility] Comment on above: Performed By: #### C BC #### [facility] [address] [place] [address] Dr. Deana العراقي Hematocrit (Bld) [Volume fraction] 47.3 % Normal 36.0-48.0 [facility] Comment on above: Performed By: #### C BC #### [facility] [address] [place] [address] Dr. Deana العراقي Hemoglobin (Bld) [Mass/Vol] 15.9 g/dL Normal 12.0-16.0 [facility] Comment on above: Performed By: #### C BC #### [facility] [address] [place] [address] Dr. Deana العراقي IG # 0.01 10e3/ul Normal 0.00-0.03 [facility] Comment on above: Performed By: #### C BC #### [facility] [address] [place] [address] Dr. Deana العراقي IG % 0.1 % Normal 0.0-0.5 [facility] Comment on above: Performed By: #### C BC #### [facility] [address] [place] [address] Dr. Deana العراقي LYMPH # 3.2 103/ul Normal 1.2-3.8 [facility] Comment on above: Performed By: #### C BC #### [facility] [address] [place] [address] Dr. Deana العراقي Lymphocytes/100 WBC (Bld) 45.5 % Normal 20.5-60.0 [facility] Comment on above: Performed By: #### C BC #### [facility] [address] [place] [address] Dr. Deana العراقي MANUAL DIFF REQ NO Normal [facility] Comment on above: Performed By: #### C BC #### [facility] [address] [place] [address] Dr. Deana العراقي MCH (RBC) [Entitic mass] 29.0 pg Normal 26.7-34.0 [facility] Comment on above: Performed By: #### C BC #### [facility] [address] [place] [address] Dr. Deana العراقي MCHC (RBC) [Mass/Vol] 33.6 g/dL Normal 29.9-35.2 [facility] Comment on above: Performed By: #### C BC #### [facility] [address] [place] [address] Dr. Deana العراقي MCV (RBC) [Entitic vol] 86.3 fL Normal 81.0-99.0 [facility] Comment on above: Performed By: #### C BC #### [facility] [address] [place] [address] Dr. Deana العراقي MONO # 0.4 103/ul Normal 0.3-0.8 [facility] Comment on above: Performed By: #### C BC #### [facility] [address] [place] [address] Dr. Deana العراقي Monocytes/100 WBC (Bld) 6.3 % Normal 1.7-12.0 [facility] Comment on above: Performed By: #### C BC #### [facility] [address] [place] [address] Dr. Deana العراقي NEUT # 3.2 103/ul Normal 1.4-6.5 [facility] Comment on above: Performed By: #### C BC #### [facility] [address] [place] [address] Dr. Deana العراقي Neutrophils/100 WBC (Bld) 46.4 % Normal 43.0-75.0 [facility] Comment on above: Performed By: #### C BC #### [facility] [address] [place] [address] Dr. Deana العراقي Platelet mean volume (Bld) [Entitic vol] 10.6 fL Normal 9.5-13.5 [facility] Comment on above: Performed By: #### C BC #### [facility] [address] [place] [address] Dr. Deana العراقي PLT 272 103/ul Normal 150-450 [facility] Comment on above: Performed By: #### C BC #### [facility] [address] [place] [address] Dr. Deana العراقي RBC 5.48 106/ul Critically high 4.20-5.40 [facility] Comment on above: Performed By: #### C BC #### [facility] [address] [place] [address] Dr. Deana العراقي WBC 7.0 103/ul Normal 4.0-11.0 [facility] Comment on above: Performed By: #### C BC #### [facility] [address] [place] [address] Dr. Deana العراقي FREE THYROXINE INDEX T7on FTI 4.30 Normal 1.30-4.50 [facility] Comment on above: Performed By: #### A MY, LIPA, T7, TSH, LIPID, CMP #### [facility] [address] [address] [address] Deana العراقي T3U 25.0 % Critically low 30.0-39.0 [facility] Comment on above: Performed By: #### A MY, LIPA, T7, TSH, LIPID, CMP #### [facility] [address] [place] [address] Dr. Deana العراقي T4 [Mass/Vol] 17.20 ug/dL Critically high 4.80-13.90 [facility] Comment on above: Performed By: #### A MY, LIPA, T7, TSH, LIPID, CMP #### [facility] [address] [place] [address] Dr. Deana العراقي GLYCOHEMOGLOBIN A1Con 2022 ADA RECOMMENDATION SEE BELOW Normal [facility] Comment on above: Result Comment: ADA RECOMMENDED LIMIT 4.0 - 6.0 ADA THERAPEUTIC TARGET < 7.0 ACTION SUGGESTED > 7.0 Performed By: #### A 1C #### [facility] [address] [place] [address] Dr. Deana العراقي Glucose [Mass/Vol] 114 mg/dL Normal [facility] Comment on above: Performed By: #### A 1C #### [facility] [address] [place] [address] Dr. Deana العراقي HbA1c (Bld) [Mass fraction] 5.6 % Normal 4.5-6.2 [facility] Comment on above: Performed By: #### A 1C #### [facility] [address] [place] [address] Dr. Deana العراقي IRONon 03-01-2023 Iron [Mass/Vol] 69.0 ug/dL Normal 50.0-170.0 [facility] Comment on above: Performed By: #### I NIKKO HAMILTON #### [facility] [address] [place] [address] Dr. Deana العراقي LIPASEon 03-01-2023 Lipase [Catalytic activity/Vol] 56.0 U/L Critically low 73.0-393.0 [facility] Comment on above: Performed By: #### Braulio HAMILTON VITAD #### [facility] [address] [address] [address] Deana العراقي LIPID PROFILEon 03-01-2023 CHOL-HDL RATIO NORM SEE BELOW Normal [facility] Comment on above: Result Comment: 3.3 - 4.4 LOW RISK 4.4 - 7.1 AVERAGE RISK 7.1 - 11.0 MODERATE RISK >11.0 HIGH RISK Performed By: #### I ALFONSO VITAD #### [facility] [address] [address] [address] Deana العراقي Cholesterol [Mass/Vol] 189 mg/dL Normal <=200 [facility] Comment on above: Performed By: #### Braulio HAMILTON VITAD #### [facility] [address] [address] [address] Deana العراقي Cholesterol in HDL [Mass/Vol] 31 mg/dL Critically low 40-60 [facility] Comment on above: Performed By: #### Braulio HAMILTON VITAD #### [facility] [address] [address] [address] Deana العراقي Cholesterol in LDL [Mass/Vol] 110.6 mg/dL Normal [facility] Comment on above: Performed By: #### Braulio HAMILTON VITAD #### [facility] [address] [address] [address] Deana العراقي Cholesterol.total/Choles terol in HDL [Mass ratio] 6.1 {ratio} Normal [facility] Comment on above: Performed By: #### I ALFONSO VITAD #### [facility] [address] [address] [address] Deana العراقي HDL NORMAL > or = 60 mg/dl - LO W CARDIOVASCULAR RISK <40 mg/dl - HIGH CARDIOVASCULAR RISK Normal [facility] Comment on above: Performed By: #### Braulio HAMILTON, VITAD #### [facility] [address] [address] [address] Deana العراقي LDL CALC NORMAL SEE BELOW Normal [facility] Comment on above: Result Comment: <100 mg/dl OPTIMAL 100 - 129 mg/dl NEAR OR ABOVE OPTIMAL 130 - 159 mg/dl BORDERLINE HIGH 160 - 189 mg/dl HIGH >190 mg/dl VERY HIGH Performed By: #### I ALFONSO VITAD #### [facility] [address] [address] [address] Deana العراقي Triglyceride [Mass/Vol] 237 mg/dL Critically high <=150 [facility] Comment on above: Performed By: #### I ALFONSO VITAD #### [facility] [address] [address] [address] Deana العراقي VLDL CALC 47.4 mg/dL Normal [facility] Comment on above: Performed By: #### I ALFONSO VITAD #### [facility] [address] [place] [address] Dr. Deana العراقي PROF 14(COMP METB)on 023 Albumin [Mass/Vol] 3.4 g/dL Normal 3.4-5.0 [facility] Comment on above: Performed By: #### A MY, LIPA, T7, TSH, LIPID, CMP #### [facility] [address] [address] [address] Deana العراقي Albumin/Globulin [Mass ratio] 0.7 {ratio} Normal [facility] Comment on above: Performed By: #### A MY, LIPA, T7, TSH, LIPID, CMP #### [facility] [address] [address] [address] Deana العراقي ALP [Catalytic activity/Vol] 107 U/L Normal 46-116 [facility] Comment on above: Performed By: #### A MY, LIPA, T7, TSH, LIPID, CMP #### [facility] [address] [address] [address] Deana العراقي ALT [Catalytic activity/Vol] 63 U/L Critically high 14-59 [facility] Comment on above: Performed By: #### A MY, LIPA, T7, TSH, LIPID, CMP #### [facility] [address] [place] [address] Dr. Deana العراقي Anion gap [Moles/Vol] 9.2 mmol/L Normal [facility] Comment on above: Performed By: #### A MY, LIPA, T7, TSH, LIPID, CMP #### [facility] [address] [address] [address] Deana العراقي AST [Catalytic activity/Vol] 46 U/L Critically high 15-37 [facility] Comment on above: Performed By: #### A MY, LIPA, T7, TSH, LIPID, CMP #### [facility] [address] [address] [address] Deana العراقي Bilirubin [Mass/Vol] 0.3 mg/dL Normal 0.2-1.0 [facility] Comment on above: Performed By: #### A MY, LIPA, T7, TSH, LIPID, CMP #### [facility] [address] [place] [address] Dr. Deana العراقي Calcium [Mass/Vol] 9.6 mg/dL Normal 8.5-10.1 [facility] Comment on above: Performed By: #### A MY, LIPA, T7, TSH, LIPID, CMP #### [facility] [address] [place] [address] Dr. Deana العراقي Chloride [Moles/Vol] 100 mmol/L Normal 98-107 [facility] Comment on above: Performed By: #### A MY, LIPA, T7, TSH, LIPID, CMP #### [facility] [address] [place] [address] Dr. Deana العراقي CO2 [Moles/Vol] 29.5 mmol/L Normal 21.0-32.0 [facility] Comment on above: Performed By: #### A MY, LIPA, T7, TSH, LIPID, CMP #### [facility] [address] [place] [address] Dr. Deana العراقي Creatinine [Mass/Vol] 0.93 mg/dL Normal 0.55-1.02 [facility] Comment on above: Performed By: #### A MY, LIPA, T7, TSH, LIPID, CMP #### [facility] [address] [place] [address] Dr. Deana العراقي EGFR-AF [place] >60 Normal >=60 [facility] Comment on above: Performed By: #### A MY, LIPA, T7, TSH, LIPID, CMP #### [facility] [address] [address] [address] Deana العراقي EGFR-NON AF [place] >60 Normal >=60 [facility] Comment on above: Performed By: #### A MY, LIPA, T7, TSH, LIPID, CMP #### [facility] [address] [address] [address] Deana العراقي Globulin (S) [Mass/Vol] 4.8 g/dL Normal [facility] Comment on above: Performed By: #### A MY, LIPA, T7, TSH, LIPID, CMP #### [facility] [address] [place] [address] Dr. Deana العراقي Glucose [Mass/Vol] 146 mg/dL Critically high 74-106 [facility] Comment on above: Performed By: #### A MY, LIPA, T7, TSH, LIPID, CMP #### [facility] [address] [place] [address] Dr. Deana العراقي Potassium [Moles/Vol] 3.7 mmol/L Normal 3.5-5.1 [facility] Comment on above: Performed By: #### A MY, LIPA, T7, TSH, LIPID, CMP #### [facility] [address] [place] [address] Dr. Deana العراقي Protein [Mass/Vol] 8.2 g/dL Normal 6.4-8.2 [facility] Comment on above: Performed By: #### A MY, LIPA, T7, TSH, LIPID, CMP #### [facility] [address] [address] [address] Deana العراقي Sodium [Moles/Vol] 135 mmol/L Critically low 136-145 [facility] Comment on above: Performed By: #### A MY, LIPA, T7, TSH, LIPID, CMP #### [facility] [address] [place] [address] Dr. Deana العراقي Urea nitrogen [Mass/Vol] 6.0 mg/dL Critically low 7.0-18. 0 [facility] Comment on above: Performed By: #### A MY, LIPA, T7, TSH, LIPID, CMP #### [facility] [address] [address] [address] Deana العراقي Urea nitrogen/Creatinine [Mass ratio] 6.5 mg/mg Normal [facility] Comment on above: Performed By: #### A MY, LIPA, T7, TSH, LIPID, CMP #### [facility] [address] [place] [address] Dr. Deana العراقي TSHon 03-01-2023 TSH 1.789 uIU/mL Normal 0.358-3.740 [facility] Comment on above: Performed By: #### I ALFONSO VITAD #### [facility] [address] [place] [address] Dr. Deana العراقي VITAMIN D 25 OHon 03-01-2023 VIT D 25-OH 20.4 ng/mL Normal [facility] Comment on above: Performed By: #### I ALFONSO VITAD #### [facility] [address] [place] [address] Dr. Deana العراقي VIT D RANGES SEE BELOW Normal [facility] Comment on above: Result Comment: <20 ng/mL Vit D deficient 20 - <30 ng/mL Vit D insufficient 30 - 100 ng/mL Vit D sufficient >100 ng/mL Potential Toxicity Performed By: #### Braulio HAMILTON VITAD #### [facility] [address] [place] [address] Dr. Deana العراقي Vital Signs Date Time Vital Sign Value Performing Clinician Faci lity 04-29-2024 18:42-0400 Body height 167.64 cm MD Melba Brown Work Phone: [facility] 04-29-2024 18:42-0400 Body temperature 98 [degF] MD Melba Brown Work Phone: [facility] 04-29-2024 18:42-0400 Body weight 83.5 kg MD Melba Brown Work Phone: [facility] 04-29-2024 18:42-0400 Diastolic blood pressure 78 mm[Hg] MD Melba Brown Work Phone: [facility] 04-29-2024 18:42-0400 Heart rate 82 /min MD Melba Brown Work Phone: [facility] 04-29-2024 18:42-0400 Respiratory rate 18 /min MD Melba Brown Work Phone: [facility] 04-29-2024 18:42-0400 SaO2% (BldA) [Mass fraction] 98 % MD Melba Brown Work Phone: [facility] 04-29-2024 18:42-0400 Systolic blood pressure 134 mm[Hg] MD Melba Brown Work Phone: [facility] 10-14-2023 11:51-0500 Body height 170.18 cm MD Melba Brown Work Phone: [facility] 10-14-2023 11:51-0500 Body temperature 98.9 [degF] MD Melba Brown Work Phone: [facility] 10-14-2023 11:51-0500 Body weight 87 kg MD Melba Brown Work Phone: [facility] 10-14-2023 11:51-0500 Diastolic blood pressure 100 mm[Hg] MD Melba Brown Work Phone: [facility] 10-14-2023 11:51-0500 Heart rate 97 /min MD Melba Brown Work Phone: [facility] 10-14-2023 11:51-0500 Respiratory rate 20 /min MD Melba Brown Work Phone: [facility] 10-14-2023 11:51-0500 SaO2% (BldA) [Mass fraction] 98 % MD Melba Brown Work Phone: [facility] 10-14-2023 11:51-0500 Systolic blood pressure 144 mm[Hg] MD Melba Brown Work Phone: [facility] Encounters Encounter Date Encounter Type Care Provider Facility Start: 05-25-2024 End: 05-25-2024 Patient encounter procedure MD Melba Brown Work Phone: [facility] Work Phone: Start: 05-25-2024 End: 05-25-2024 ambulatory MD Melba Brown Work Phone: [facility] Work Phone: Start: 04-29-2024 End: 04-29-2024 Emergency department patient visit MD Melba Brown Work Phone: [facility] Work Phone: Start: 02-06-2024 End: 02-06-2024 Patient encounter procedure MD Melba Brown Work Phone: [facility] Work Phone: Start: 02-06-2024 End: 02-06-2024 ambulatory MD Melba Brown Work Phone: [facility] Work Phone: Start: 02-05-2024 End: 02-05-2024 ambulatory VASQUEZ ALFARO Not Available Start: 10-14-2023 End: 10-14-2023 Emergency department patient visit MD Melba Brown Work Phone: [facility] Work Phone: Start: 03-01-2023 End: 03-02-[address] MELBA BROWN . Facility:[facility] Start: 05-01-2022 End: 05-01-[address] MELBA BROWN . Facility:[facility] Procedures Date Procedure Procedure Detail Performing Clinician Start: 10-14-2023 Streptococcus pyogen es antigen assay MD Melba Brown Work Phone: Plan of Treatment Date Care Activity Detail Author Start: 02-06-2024 Thyroxine measurement F [facility] Insulin [Units/volum e] in Serum or Plasma [facility] Patient Education [facility] Work Phone: Patient referral [facility] Work Phone: Payers Date Payer Category Payer Self-pay [id number] 1985 Unknown [id number] 2.16.84 [id number] 1985 Unknown [id number] 2.16.84 [id number] 1984 Unknown [id number] 2.16.84 [id number] 1959 Unknown [id number] Medicaid [place] [employer] [id number] Unknown [id number] 2.16.8 [id number] Unknown [id number] 2.16.8 [id number] Unknown [id number] 2.16.8 [id number] Unknown [id number] 2.16.8 [id number] Social History Date Type Detail Facility Start: 10-14-2023 End: 04-29-2024 Tobacco smoking status ARIS Smoker (finding) [facility] Start: 1985 Sex Assigned At Female F [facility] NEGATED: Highlighted row Fir [facility] Evaluation note Note Date & Type Note Facility Evaluation note No assessment information availa ble [facility] Work Phone: Summary Purpose Family History No Family History Records Found Relationship Condition Age at Onset Recorded Date/T dev father Hepatitis C virus infection Unknown grandparent Diabetes mellitus Unknown Advance Directives No Advanced Directives Records Found Advance Directive Response Recorded Date/ Time Advance Directives No December 03, 2017 8:45pm Advance Directive Response Recorded Date/ Time Advance Directives No December 03, 2017 9:45pm Chief Complaint and Reason for Visit Chief Complaint mouth sores Chief Complaint See order Chief Complaint See order right side tooth pain Chief Complaint right side tooth be n R94.31 Additional Source Comments INFORMATION SOURCE (unrecogn ized section and content) DATE CREATED AUTHOR 03/06/2023 [facility] DATE CREATED AUTHOR AUTHOR'S ORGANIZ ATION 02/07/2024 [facility] EPIC DATE CREATED AUTHOR AUTHOR'S ORGANIZ ATION 05/31/2024 [facility] Care Teams (unrecognized sec tion and content) Team Status: Active Member Role Status Dates Melba Brown MD Primary Care Provider Active Team Status: Inactive Member Role Status Dates Melba Brown MD Primary Care Provider Active Yadiel Ha APRN Emergency Provider Active Team Status: Inactive Member Role Status Dates Melba Brown MD Primary Care Provide r, Attending Provider Active Start: February 06, 2024 End: February 06, 2024 Team Status: Inactive Member Role Status Dates Melba Brown MD Primary Care Provider Active Start: April 29, 2024 End: April 29, 2024 Edgar Brown PA-C Emergency Provider Active Start: April 29, 2024 End: April 29, 2024 Team Status: Inactive Member Role Status Dates Melba Brown MD Primary Care Provider Active Start: May 25, 2024 End: May 25, 2024 Juan Ramon Butler MD Attending Provider Active Star t: May 25, 2024 End: May 25, 2024 Goals (unrecognized section and content) Goals may be documented in a n alternate sectionGoals may be documented in an alternate sectionGoals may be documented in an alternate sectionGoals may be documented in an alternate section FOR RECORDS PERTAINING TO PATIENTS WHO ARE OR HAVE BEEN ENROLLED IN A CHEMICAL DEPENDENCY/SUBSTANCEABUSE PROGRAM, SOME INFORMATION MAY BE OMITTED. This clinical summary was aggregated from multiple sources. Caution should be exercised in using it in the provision of clinical care. This summary normalizes information from multiple sources, and as a consequence, information in this document may materially change the coding, format and clinical context of patient data. In addition, data may be omitted in some cases. CLINICAL DECISIONS SHOULD BE BASED ON THE PRIMARY CLINICAL RECORDS. [facility] provides no warranty or guarantee of the accuracy or completeness of information in this document.
--- OUTSIDE RECORDS SUMMARY | 2025-08-09 17:55 | XMS_ITS | Patient Health Record ---
Author Organization [facility] in [place] Address [address] [place] [address] Care Team Providers Care Hurl Shaker Name Role Phone Fly Morel Primary Care Provider Alexander Summers Unavailable [phone] Mojgan Zhou Unavailable [phone] Allergies Allergen (clinical drug ingredient) Drug/Non Drug Allergy documented on EMR Reaction Allergy Type Onset Date Status Penicillin anaphylaxis Drug Allergy Acti ve Results Component Value Reference Range Notes COVID-19, Flu A+B IH (Not ye t reviewed by provider) Interpretation: Performing Lab: Notes/Report: COVID - FLU A - FLU B - Control + CBC AUTO DIFF Reviewed date:09/28/2024 08:36:22 PM Interpretation: Performing Lab: Notes/Report: [facility] , White Blood Count 7.8 4.0-11.0 10 3/uL Red Blood Count 5.23 4.20-5.40 10 6/uL Hemoglobin 14.9 12.0-16.0 g/dL Hematocrit 45.0 36.0-48.0 % Mean Corpuscular Volume 86.0 81.0-99.0 fL Mean Corpuscular Hemoglobin 28.5 26.7-34.0 pg Mean Corpuscular HGB Conc 33.1 29.9-35.2 g/dL Red Cell Distribution Width 12.3 11.0-15.0 % Platelet Count 236 150-450 10 3/uL Mean Platelet Volume 9.7 9.5-13.5 fL Neutrophils Percent Auto 49.2 43.0-75.0 % Lymphocytes Percent Auto 43.2 20.5-60.0 % Monocytes Percent Auto 6.0 1.7-12.0 % Eosinophils Percent Auto 1.0 0.9-7.0 % Basophils Percent Auto 0.5 0.2-2.0 % Immature Granulocytes Pct Auto 0.1 0.0-0.5 % Neutrophils Absolute Auto 3.9 1.4-6.5 10 3/uL Lymphocytes Absolute Auto 3.4 1.2-3.8 10 3/uL Monocytes Absolute Auto 0.5 0.3-0.8 10 3/uL Eosinophils Absolute Auto 0.1 0.0-0.7 10 3/uL Basophils Absolute Auto 0.0 0.0-0.1 10 3/uL Immature Granulocytes Abs Auto 0.01 0.00-0.03 10 3/uL Performing Lab: see note ML - [facility] FREE T3 Reviewed date:09/28/2024 08:36:22 PM Interpretation: Performing Lab: Notes/Report: [facility] , Free T3 2.96 2.18-3.98 pg/mL Performing Lab: see note ML - [facility] LB GLYCOHEMOGLOBIN A1C Reviewed date:09/28/2024 08:36:22 PM Interpretation: Performing Lab: Notes/Report: [facility] , Glycohemoglobin A1C 5.6 4.5-6.2 % ADA RECOMMENDED LIMIT 4.0 - 6.0 ADA THERAPEUTIC TARGET < 7.0 ACTION SUGGESTED > 7.0 Estimated Average Glucose 114 Performing Lab: see note ML - [facility] IRON Reviewed date:09/28/2024 08:36:22 PM Interpretation: Performing Lab: Notes/Report: [facility] , Iron 82.0 50.0-170.0 ug/dL Performing Lab: see note ML - [facility] LB LIPID PROFILE Reviewed date:09/28/2024 08:36:22 PM Interpretation: Performing Lab: Notes/Report: [facility] , Triglycerides 131 <=150 mg/dL Cholesterol 183 <=200 mg/dL HDL Cholesterol 40 40-60 mg/dL > or =60 mg/dl - LOW CARDIOVASCULAR RISK <40 mg/dl - HIGH CARDIOVASCULAR RISK LDL Cholesterol Calculated 116.8 <100 mg/dl OPTIMAL 100-129 mg/dl NEAR OR ABOVE OPTIMAL 130-159 mg/dl BORDERLINE HIGH 160-189 mg/dl HIGH >190 mg/dl VERY HIGH VLDL CHOLESTEROL 26.2 Chol HDL Ratio 4.6 3.3 - 4.4 LOW RISK 4.4 - 7.1 AVERAGE RISK 7.1 - 11.0 MODERATE RISK >11.0 HIGH RISK Performing Lab: see note ML - [facility] LB PROF 14(COMP METB) Reviewed date:09/28/2024 08:36:22 PM Interpretation: Performing Lab: Notes/Report: [facility] , Sodium 139 136-145 mmol/L Potassium 4.4 3.5-5.1 mmol/L Chloride 103 98-107 mmol/L Carbon Dioxide 28.5 21.0-32.0 mmol/L Anion Gap 11.9 Glucose 84 74-106 mg/dL Blood Urea Nitrogen 17.0 7.0-18.0 mg/dL Creatinine 0.82 0.55-1.02 mg/dL Estimated GFR ( Meredith >60 >=60 mL/min/1.73m 2 Estimated GFR (Non- Sonia >60 >=60 mL/min/1.73m 2 BUN Creatinine Ratio 20.7 Calcium 9.0 8.5-10.1 mg/dL Bilirubin Total 0.4 0.2-1.0 mg/dL Aspartate Amino Transferase 32 15-37 U/L Alanine Aminotransferase 41 14-59 U/L Alkaline Phosphatase 78 46-116 U/L Total Protein 7.6 6.4-8.2 g/dL Albumin Level 3.4 3.4-5.0 g/dL Globulin 4.2 Albumin Globulin Ratio 0.8 Performing Lab: see note ML - [facility] LB T4 Reviewed date:09/28/2024 08:36:22 PM Interpretation: Performing Lab: Notes/Report: [facility] , T4 Thyroxine 12.50 4.80-13.90 ug/dL Performing Lab: see note ML - [facility] LB TSH Reviewed date:09/28/2024 08:36:22 PM Interpretation: Performing Lab: Notes/Report: [facility] , Thyroid Stimulating Hormone 0.474 0.358-3.740 u IU/mL Performing Lab: see note ML - [facility] LB Reason For Referral Reason callues and hamertoe Diagnosis 1 [place] (L84) Referral Organization [facility] Referring Provider First Name Fly Referring Provider Last Name Maria Teresa Referring Provider Speciality Family Med slivia Referred Provider Alexander Summers Referred Provider Specialty Podiatry Referral Priority Routine Medications Medication SIG (Take, Route, Frequency, Duration) Notes Start Date End Date Status Ciprofloxacin HCl 500 MG 1 tablet Orally every 12 hrs; Duration: 10 days 10/25/2024 Active Amitriptyline HCl 150 MG 2 TABLETS BY MOUTH AT BEDTIME; Duration: 30 days Active Methadone HCl 10 MG 1 tablet Orally Once a day Unsure of dosage Active Protonix 40 MG 1 tablet Orally Once a day; Duration: 30 days 09/28/2024 Active Social History Tobacco Use: Social History Observation Description Date Details (start date - stop date) Current Smoker NA - NA Tobacco Use/Smoking Question Answer Notes Patient is a current smoker How often do you smoke cigarettes? every day How many cigarettes a day do you smoke? 11-20 How soon after you wake up do you smoke your fir st cigarette? after 60 minutes Are you interested in quitting? Not ready to fab t Alcohol Screen (Audit-C) Question Answer Notes Did you have a drink containing alcohol in the p ast year? No Points 0 Interpretation Negative AUDIT-C (Standard) Question Answer Notes Did you have a drink containing alcohol in the p ast year? No Points 0 Interpretation Negative Problems Problem Type SNOMED Code ICD Code Onset Dates Problem Status W/U Status Risk Notes Problem Hypothyroidism (44885138) Hypothyroidism, unspecified (E03.9) Active confirmed Problem Streptococcal pharyngitis (52921639) Streptococcal pharyngitis (J02.0) Active confirmed Problem Snoring (09952214) Snoring (R06.83) Active conf irmed Problem Gastroesophageal reflux disease (412106165) GERD (gastroesophagea l reflux disease) (K21.9) Active confirmed Problem Hepatitis C (51075976) Hepatitis C (B19.20) Active confirmed Problem Weight loss (463233637) Weight loss (R63.4) Active confirmed Problem Acute sinusitis (07218881) Acute sinusitis (J01.90) Active confirmed Problem Arthralgia (16311150) Arthralgia (M25.50) Active confirmed Problem Pain in right foot (211537364744185) Right foot pain (M79.671) Active confirmed Problem Well adult (887688415) Well adult (Z00.00) Active confirmed Problem Bunion (210694017) Bunion (M20.10) Active confi rmed Problem Dyshidrotic eczema (920396279) Dyshidrotic eczema (L30.1) Active confirmed Problem Pain in left foot (175524966572470) Left foot pain (M79.672) Active confirmed Problem Opioid abuse (6270521) Narcotic abuse (F11.10) Active confirmed Problem Internal derangement of knee (36236165) Internal derangement of knee (M23.90) Active confirmed Problem Lump in upper outer quadrant of left breast (745604929365737) Unspecified lump in the left breast, upper outer quadrant (N63.21) Active confirmed Vital Signs Temperature 98.1 degrees Fahrenheit 10/25/2024 Blood pressure diastolic 72 mm Hg 10/25/2024 Height 67 in 10/25/2024 Blood pressure systolic 118 mm Hg 10/25/2024 Weight 178 lbs 10/25/2024 BMI 27.88 kg/m2 10/25/2024 Encounters Encounter Location Date Provider Diagnosis [address] [address] 10/25/2024 Fly Morel Cough R05.9 ; Acute non-recurrent sinusitis, unspecified location J01.90 and Nasal congestion R09.[address] [address] 09/28/2024 Fly Morel Well adult Z00.00 an d [place] [address] [address] 08/23/2024 Fly Morel [address] [address] 09/25/2024 Fly Morel [address] [address] 09/28/2024 Fly Morel Assessments Encounter Date Diagnosis (ICD Code) Assessment Notes Treatment Notes Treatment Clinical Notes Section Notes 09/28/2024 Well adult (ICD-10 - Z00.00) 09/28/2024 [place] (ICD-10 - L84) 10/25/2024 Cough (ICD-10 - R05.9) 10/25/2024 Acute non-recurrent sinusitis, unspecified location (ICD-10 - J01.90) Rest and drink more liquids, especially water. You may use a humidifier or vaporizer to help keep the drainage moist. Rtfq-umu-diktzdz Nasal Saline may help the stuffy and runny nose. Use Ibuprofen and or Tylenol as needed for fever, chills, body aches or pain. Children 5 years old should not be given mhwh-gwz-dlmrntb cough and cold medications such as guaifenesin and dextromethorphan. If you're over age 5, you may try uuqy-keu-edxxnhk cold medications such as guaifenesin and dextromethorphan, or multi-symptom cold reliever such as Dayquil to help reduce the symptoms. Antibiotics have been prescribed. You should take these until completed and follow the directions. Antibiotics can sometimes cause upset stomach, and in rare cases, serious allergic reactions or serious gastrointestinal problems. If you start having severe abdominal pain, severe vomiting, or bloody diarrhea, you should be reevaluated by your physician or urgent care immediately. Follow up with your Primary Care Provider or return to clinic if symptoms do not improve within 3-5 days 10/25/2024 Nasal congestion (ICD-10 - R09.81) Plan Of Treatment Pending Test Test Name Order Date CMP (COMPLETE METABOLIC PANEL) 3 CMP (COMPLETE METABOLIC PANEL) 4 HEMOGLOBIN A1C (GLYCO) 08/06/2023 HEMOGLOBIN A1C (GLYCO) 09/28/2024 IRON, TOTAL 09/28/2024 IRON, TOTAL 08/06/2023 LIPID PANEL (CHOL/TRIG/HDL/LDL) 08/06/20 23 LIPID PANEL (CHOL/TRIG/HDL/LDL) 09/28/20 24 CBC WITH DIFF 09/28/2024 CBC WITH DIFF 08/06/2023 VITAMIN D, 25 LEVEL (TOTAL) 08/06/2023 Insulin Level 08/06/2023 COVID-19, Flu A+B IH 10/25/2024 FSH 08/06/2023 THYROID ANTIBODIES 03/02/2023 THYROID ANTIBODIES 02/09/2024 THYROID PANEL (T4/TSH/FREE T3) 3 THYROID PANEL (T4/TSH/FREE T3) 4 MM screening mammo BI 09/28/2024 Insurance Providers Payer Name Payer Address Payer Phone Subscriber Number Group Number Insured Name Patient Relationship to Insured Coverage Start Date Coverage End Date [address] [place] [phone] [id number] Elizabeth Sloan Self - patient is the insured Medical (General) History Medical History History ICD Code Well adult Z00.00 Snoring R06.83 Acute sinusitis J01.90 Unspecified lump in the left breast, upp er outer quadrant N63.21 Weight loss R63.4 Internal derangement of knee M23.90 Bunion M20.10 Dyshidrotic eczema L30.1 Streptococcal pharyngitis J02.0 Hepatitis C B19.20 Arthralgia M25.50 Narcotic abuse F11.10 Surgical History Surgery Date(Month/Year) Tubal Ligation Tonsilectomy
--- NOTE | 2025-08-09 18:10 | ED_ITS ---
HPI HPI - General Adult General Chief complaint: Dental/Oral Stated complaint: Dental Pain Time Seen by Provider: 08/09/25 18:01 Source: patient Mode of arrival: walk-in Limitations: no limitations History of Present Illness HPI narrative: 39-year-old female presented to the emergency department for dental pain. She is complaining pain to her right lower jaw anteriorly and feels that she has an infection. She currently does not have dental insurance. No difficulty breathing or swallowing. She wanted to get an antibiotic. Pain is moderate and continuous. States that the tooth broke off. Related Data Previous Rx's ?Medication ?Instructions ?Recorded acetaminophen 300 mg-codeine 30 mg 1 tab PO Q6H PRN pa in 5 days #20 08/09/25 tablet tabs ibuprofen 800 mg tablet 800 mg PO Q8H PRN pain #20 t abs 08/09/25 penicillin V potassium 250 mg 250 mg PO QID 10 days #4 0 tabs 08/09/25 tablet Allergies Allergy/AdvReac Type Severity Reaction Status Date / Time No Known Drug Allergies Allergy Verified 08/09/25 17:50 Opioid HPI Opioid Management Most Recent Opioid Data: Last Pain Scale 8 Today, 17:50 Review of Systems ROS Narrative A ten point review of systems is negative except as noted above. PFSH PFSH Social History Little interest or pleasure in doing things: not at all Feeling down, depressed, or hopeless: not at all Exam Narrative Exam Narrative: Nurses note and vital signs reviewed and patient is not hypoxic. General:The patient appears in no apparent distress. Skin:Warm, dry, no pallor noted.There is no rash noted. Head:Normocephalic, atraumatic Eye: Normal conjunctiva, no drainage Ears, Nose, Mouth, and Throat: oral mucosa is moist. Nares patent. Of her mouth is swollen and she is handling her oral secretions well. Tooth in question is in the right mandibular dentition and is eroded down to the gumline. No bleeding or pus present but there is some gingival swelling. Cardiovascular:Regular Rate and Rhythm Respiratory:Patient is in no distress, no accessory muscle use, lungs are clear to auscultation, no wheezing, rales or rhonchi Back:non-tender GI: Nontender Musculoskeletal: No joint swelling Neurological:A&O, normal speech Psychiatric:Cooperative Constitutional Vital Signs, click to edit/add: Last Vital Signs Temp 98.7 F 08/09/25 17:50 Pulse 118 H 08/09/25 17:50 Resp 20 08/09/25 17:50 BP 147/77 H 08/09/25 17:50 Pulse Ox 100 08/09/25 17:50 O2 Del Method Room Air 08/09/25 17:50 Course Vital Signs Vital signs: Vital Signs Temperature 98.7 F 08/09/25 17:50 Pulse Rate 118 H 08/09/25 17:50 Respiratory Rate 20 08/09/25 17:50 Blood Pressure 147/77 H 08/09/25 17:50 Pulse Oximetry 100 08/09/25 17:50 Oxygen Delivery Method Room Air 08/09/25 17:50 Temperature 98.7 F 08/09/25 17:50 Pulse Rate 118 H 08/09/25 17:50 Respiratory Rate 20 08/09/25 17:50 Blood Pressure 147/77 H 08/09/25 17:50 Pulse Oximetry 100 08/09/25 17:50 Oxygen Delivery Method Room Air 08/09/25 17:50 Medical Decision Making MDM Narrative Medical decision making narrative: The patient is provided a prescription for penicillin, Tylenol 3, and ibuprofen and she will follow-up with dentistry. Treatment diagnosis and follow-up were discussed with the patient. Differential Diagnosis Differential Diagnosis: Dental caries, dental infection Discharge Plan Discharge Chief Complaint: Dental/Oral Clinical Impression: Dental caries Patient Disposition: Home, Self-Care Time of Disposition Decision: 18:05 Condition: Good Mode of Transportation: Private Vehicle Prescriptions / Home Meds: New acetaminophen-codeine 300-30 mg tablet 1 tab PO Q6H PRN (Reason: pain) 5 Days Qty: 20 0RF penicillin V potassium 250 mg tablet 250 mg PO QID 10 Days Qty: 40 0RF ibuprofen 800 mg tablet 800 mg PO Q8H PRN (Reason: pain) Qty: 20 0RF Print Language: Turkish Instructions: Toothache (ED) Additional Instructions: [facility] [phone] [facility] [place] [phone] Referrals: Rafi Morel MD [Primary Care Provider, Family Practice] - 1 week
== END 2025-08-09 18:19 | disposition home or self-care (01) ==
PROVIDERS: Emergency Provider Emergency Medicine; PCP Family Medicine
DX: K02.9 Dental caries, unspecified (principal)
CPT/HCPCS: 99283